=== PATIENT | female | born 1965 | race Hispanic/Latino ===

== ENCOUNTER → 2023-02-06 | Outpatient (CLI) | payer OTHER, MEDICARE ==
[~2023-02-06] MED LIST: LIDOCAINE HCL 4% LTA SOL 4 ML VIAL ONE
== END | disposition home or self-care (01) ==
LOC: WHH 13:40
PROVIDERS: ATTEND Nurse Practitioner Family
DX: L02.414 Cutaneous abscess of left upper limb (principal); E11.628 Type 2 diabetes mellitus with other skin complications; I10 Essential (primary) hypertension; I69.30 Unspecified sequelae of cerebral infarction; E03.9 Hypothyroidism, unspecified; E78.5 Hyperlipidemia, unspecified; F31.9 Bipolar disorder, unspecified; Z79.899 Other long term (current) drug therapy
CPT/HCPCS: 11042; 87070; 87077; 87186; A6248; A4450

== ENCOUNTER → 2023-02-13 | Outpatient (CLI) | payer OTHER, MEDICARE | END | disposition home or self-care (01) | LOC: WHH 09:40 | PROVIDERS: ATTEND Nurse Practitioner Family | DX: L02.414 Cutaneous abscess of left upper limb (principal); E11.628 Type 2 diabetes mellitus with other skin complications; I10 Essential (primary) hypertension; I69.30 Unspecified sequelae of cerebral infarction; E03.9 Hypothyroidism, unspecified; E78.5 Hyperlipidemia, unspecified; F31.9 Bipolar disorder, unspecified; Z79.899 Other long term (current) drug therapy | CPT/HCPCS: G0463; A6248; A6212 ==

== ENCOUNTER → 2023-04-24 | Outpatient (CLI) | payer OTHER, MEDICARE | END | disposition home or self-care (01) | LOC: WHH 08:22 | PROVIDERS: ATTEND Nurse Practitioner Family | DX: L02.414 Cutaneous abscess of left upper limb (principal); S41.002D Unspecified open wound of left shoulder, subsequent encounter; E11.628 Type 2 diabetes mellitus with other skin complications; I10 Essential (primary) hypertension; I69.30 Unspecified sequelae of cerebral infarction; E78.5 Hyperlipidemia, unspecified; E03.9 Hypothyroidism, unspecified; F31.9 Bipolar disorder, unspecified; Z79.01 Long term (current) use of anticoagulants; Z79.82 Long term (current) use of aspirin; Z79.899 Other long term (current) drug therapy; X58.XXXD Exposure to other specified factors, subsequent encounter | CPT/HCPCS: G0463; A4450 ==